=== PATIENT | female | born 1950 | race Caucasian/White ===

== ENCOUNTER → 2019-08-30 10:42 | Outpatient (CLI) | payer MEDICARE, OTHER, SELFPAY ==
--- NOTE | 2019-08-30 | DI.MG.S_ITS ---
BILATERAL DIGITAL SCREENING MAMMOGRAM 3D/2D WITH CAD: 08/30/2019 CLINICAL: Routine screening. Comparison is made to exams dated: 05/17/2017 mammogram, 10/29/2015 mammogram, and 05/17/2018 mammogram - outside location. The tissue of both breasts is heterogeneously dense. This may lower the sensitivity of mammography. Current study was also evaluated with a Computer Aided Detection (CAD) system. No significant masses, calcifications, or other findings are seen in either breast. There has been no significant interval change. IMPRESSION: NEGATIVE There is no mammographic evidence of malignancy. A 1 year screening mammogram is recommended. This exam was interpreted at Station ID: [id number]. NOTE: For mammograms, a report in lay terms will be sent to the patient. Approximately 15% of breast malignancies will not be visualized mammographically. In the management of a palpable breast mass, a negative mammogram must not discourage biopsy of a clinically suspicious lesion. Electronically Signed By: Deniz jauregui/tobin:09/02/2019 08:58:23 letter sent: Normal Exam ACR BI-RADS Category 1: Negative 3341F
== END ==
PROVIDERS: PCP Internal Medicine; Referring Provider Internal Medicine; Visit Provider Internal Medicine
DX: Z12.31 Encounter for screening mammogram for malignant neoplasm of breast (principal)
CPT/HCPCS: 77063; 77067

== ENCOUNTER → 2020-10-09 10:52 | Outpatient (CLI) | payer MEDICARE, OTHER, SELFPAY ==
--- NOTE | 2020-10-09 | DI.MG.S_ITS ---
BILATERAL DIGITAL SCREENING MAMMOGRAM 3D/2D WITH CAD: 10/09/2020 CLINICAL: Routine screening. Comparison is made to exams dated: 08/30/2019 mammogram - [facility], 05/17/2018 mammogram, 05/17/2017 mammogram, and 10/29/2015 mammogram - outside location. The tissue of both breasts is heterogeneously dense. This may lower the sensitivity of mammography. Current study was also evaluated with a Computer Aided Detection (CAD) system. No significant masses, calcifications, or other findings are seen in either breast. There has been no significant interval change. IMPRESSION: NEGATIVE There is no mammographic evidence of malignancy. A 1 year screening mammogram is recommended. This exam was interpreted at Station ID: [id number]. NOTE: For mammograms, a report in lay terms will be sent to the patient. Approximately 15% of breast malignancies will not be visualized mammographically. In the management of a palpable breast mass, a negative mammogram must not discourage biopsy of a clinically suspicious lesion. Electronically Signed By: Deniz jauregui/tobin:10/09/2020 15:32:40 letter sent: Normal Exam ACR BI-RADS Category 1: Negative 3341F
== END ==
PROVIDERS: PCP Internal Medicine; Referring Provider Internal Medicine; Visit Provider Internal Medicine
DX: Z12.31 Encounter for screening mammogram for malignant neoplasm of breast (principal)
CPT/HCPCS: 77063; 77067

== ENCOUNTER 2023-07-04 09:41 | Day surgery (SDC) | payer MEDICARE, OTHER, SELFPAY ==
[2023-07-04 10:30] VITALS: BP 151/72; PULSE 65; RESP 16; TEMP 36.4; O2SAT 99
[2023-07-04] MEDS: LACTATED RINGERS 1,000 ML 100 ML IV (10:33)
--- NOTE | 2023-07-04 10:51 | PM.HP.1 ---
History of Present Illness History of Present Illness Date Patient Seen: 07/04/23 Time Patient Seen: 10:51 Chief complaint: SDC Narrative: 73-year-old woman here for screening colonoscopy. Last colonoscopy 10 years ago normal. No family history of intestinal malignancy. No abdominal concerns today. Meds Home Medications and Allergies Home Medications Medication Instructions Recorded Confirmed Type aspirin 81 mg tablet,delayed 81 mg PO DAILY 07/04/23 07/04/23 History release atorvastatin 40 mg tablet 40 mg PO DAILY 07/04/23 07/04/23 History dulaglutide 0.75 mg/0.5 mL 0.75 SUBCUT WEEKLY 07/04/23 History subcutaneous pen injector (Trulicity) lisinopril 5 mg tablet 5 mg PO DAILY 07/04/23 07/04/23 History metformin 500 mg tablet,extended 500 mg PO BID 07/04/23 07/04/23 History release 24 hr Exam Narrative Exam Narrative: General adult woman alert oriented no acute distress Chest nonlabored respiration Extremities warm well perfused Assessment & Plan Assessment & Plan narrative: The patient requires colorectal screening and colonoscopy is recommended. Technical details were discussed. Risks, benefits, alternatives explained. Risks including but not limited to myocardial infarction, aspiration, bleeding, pain, missed lesion, incomplete examination, need for further radiographic studies, intestinal injury, and need for major abdominal surgery were discussed. All questions were answered to their satisfaction, and they are in agreement with this plan.
[2023-07-04 11:32] VITALS: BP 120/51; PULSE 64; RESP 13; TEMP 36.7; O2SAT 97
[2023-07-04 11:38] VITALS: BP 139/67; PULSE 58; RESP 14; O2SAT 99
--- NOTE | 2023-07-04 11:38 | P.OP.COLON_ITS ---
Operative Date/Time/Diagnoses Date of procedure: 07/04/23 Time of procedure: 11:38 Pre-op diagnosis: Colorectal screening Procedure & Clinicians Study performed: Screening colonoscopy Same procedure as scheduled: Yes Indications: Colorectal screening Surgeon: Regino Montaño Procedure Notes Procedure in detail: The history and physical was performed/updated and the patient is ASA class is 2. The procedure was discussed in detail with the patient. Potential risks co mplications including infection, bleeding, missed diagnosis, perforation, need for surgery, and were explained. Their questions were answered and informed consent was obtained. Patient was brought to the procedure room and placed standard monitoring equipment. The patient's vital signs were monitored continuously throughout the entire procedure. Prior to starting time-out was performed. The patient was placed in the left lateral recumbent position. Procedural sedation was administered by anesthesia. Examination began with a thorough inspection of the perianal area there was no evidence of fissures, fistulae, external hemorrhoids or cutaneous malignancy. The colonoscopy scope was then placed into the anal canal and was advanced to the cecum, which was identified by the ileocecal valve, the appendiceal orifice and the confluence of the taenia. The scope was then slowly withdrawn examining colon thoroughly in all directions, irrigating it of any residual stool. The scope was retroflexed within the rectum The patient tolerated the procedure well. They will be discharged once criteria are met. The prep was of fair quality. The withdrawl time was 7 minutes. FINDINGS * No masses polyps or inflammation. Specimen(s): none sent Impression: Normal colonoscopy Post-procedure Plan for aftercare: No further colonoscopy necessary unless symptomatic Disposition: same day surgery
[2023-07-04 11:42] VITALS: BP 146/65; PULSE 60; RESP 14; TEMP 36.3; O2SAT 99
[2023-07-04 11:46] VITALS: BP 153/68; PULSE 60; RESP 13; O2SAT 99
[2023-07-04 11:49] VITALS: BP 146/79; PULSE 60; RESP 16; TEMP 36.1; O2SAT 99
== END 2023-07-04 11:56 | disposition home or self-care (01) ==
PROVIDERS: Referring Provider Surgery; Visit Provider Surgery
PROC: 0DJD8ZZ Inspection of Lower Intestinal Tract, Via Natural or Artificial Opening Endoscopic (ICD-10-PCS; CPT 45378; principal; 2023-07-04 10:45)
DX: Z12.11 Encounter for screening for malignant neoplasm of colon (principal)
CPT/HCPCS: G0121; J2704

== ENCOUNTER → 2023-12-13 09:09 | Outpatient (CLI) | payer MEDICARE, OTHER, SELFPAY ==
--- NOTE | 2023-12-13 09:10 | DI.ECHO.S_ITS ---
[facility] : : [address] : : [place] : : [id number] : : Phone: [phone] Echocardiogram Report + + :Name: MARA MIRANDA Study Date: 12/13/2023 Height: 59 in : :[facility] ReadingLocation: Weight: 133 lb : : Gender: Female BSA: 1.6 m2 : :: 1950 Age: 73 yrs BP: 137/68 mmHg: :Reason For Study: HEART MURMUR : :Ordering Physician: AKI MCDANIELS Performed By: Muna Mistry : :Referring: AKI MCDANIELS : + + Interpretation Summary 1. The left ventricular contractility is normal. Estimate ejection fraction is greater than 55% with no segmental wall motion abnormalities. No LVH. Grade 1 diastolic dysfunction. 2. The right ventricular contractility is normal. 3. Mild left atrial enlargement. All other cardiac chambers are of normal size. 4. No significant valvular abnormalities. 5. No obvious intracardiac shunts. 6. No obvious intracardiac masses nor thrombi. 7. No hemodynamically significant pericardial effusion. 8. Low right-sided filling pressures. Conclusion: Normal biventricular systolic function with no significant valvular abnormalities. Procedure: A two-dimensional transthoracic echocardiogram with color flow and Doppler was performed. The study quality was technically adequate. There is no prior echocardiogram noted for this patient. The patient was in sinus rhythm with heart rates between 58-76 bpm during the exam. Left Ventricle: The left ventricle is normal in size and wall thickness. The ejection fraction is estimated to be 55-60%. Right Ventricle: The right ventricle is normal in size and function. Atria: The left atrium is mildly dilated. Right atrial size is normal. There is no Doppler evidence for an interatrial shunt. Mitral Valve: The mitral valve leaflets appear mildly thickened, but open well. There is no mitral regurgitation noted. Aortic Valve: The aortic valve is trileaflet. The aortic valve opens well. There is no aortic valve stenosis. There is trace aortic regurgitation. Tricuspid Valve: The tricuspid valve is normal in structure and function. There is trace tricuspid regurgitation. Pulmonic Valve: The pulmonic valve is not well seen, but is grossly normal. There is no pulmonic valvular regurgitation. Great Vessels: The aortic root is normal size. The dimensions of the ascending aorta are normal. The IVC is of normal diameter and collapses greater than 50% with a sniff. This suggests a low right atrial pressure of 3 mm Hg. Pericardium/ Pleura There is no pericardial effusion. There is no pleural effusion. MMode/2D Measurements & Calculations LVIDd: 3.9 cm LVOT diam: 1.8 cm LVIDs: 2.4 cm Ao root diam: 2.3 cm FS: 37.0 % asc Aorta Diam: 3.6 cm EPSS: 0.32 cm Ao Arch Diam (Prox Trans): 3.2 cm IVSd: 0.88 cm LVPWd: 0.66 cm LV marion. diameter/BSA (cm/m^2): 2.5 LV sys. diameter/BSA (cm/m^2): 1.6 LA A2 area: 21.1 cm2 RA long axis: 5.0 cm LA A4 area: 14.3 cm2 RA area: 14.4 cm2 LA length (vol): 4.4 cm RA vol: 35.2 ml LA vol: 58.0 ml RA : 22.7 ml/m2 LA vol index: 37.4 ml/m2 IVC diam: 1.8 cm RVD1 (basal): 3.2 cm TAPSE: 2.3 cm Doppler Measurements & Calculations Ao V2 max: 168.0 cm/sec LVOT Max Leonid: 123.7 cm/sec Ao V2 mean: 124.9 cm/sec LV V1 max P.1 mmHg Ao max P.3 mmHg LV V1 VTI: 26.7 cm Ao mean P.8 mmHg YURI(I,D): 1.7 cm2 Ao V2 VTI: 39.7 cm YURI(V,D): 1.9 cm2 sev ratio: 0.67 YURI indexed to BSA (cm^2/m^2): 1.1 MV E max leonid: 79.5 cm/sec PA V2 max: 78.6 cm/sec MV A max leonid: 93.4 cm/sec PA V2 mean: 53.0 cm/sec MV E/A: 0.85 PA mean P.2 mmHg Med Peak E' Leonid: 7.2 cm/sec PA pr(Accel): 0.22 mmHg E/E' med: 11.0 Lat Peak E' Leonid: 7.9 cm/sec E/E' lat: 10.1 E/e' average: 10.5 MV dec time: 0.33 sec SV(LVOT): 67.7 ml Reading Physician:
== END ==
PROVIDERS: Referring Provider Internal Medicine; Visit Provider Internal Medicine
DX: R01.1 Cardiac murmur, unspecified (principal)
CPT/HCPCS: 93306

== ENCOUNTER 2024-04-11 11:41 | Emergency (ER) | payer MEDICARE, OTHER, SELFPAY ==
[2024-04-11 11:44] VITALS: BP 131/63; PULSE 71; RESP 16; TEMP 37.1; O2SAT 99; BMI 24.8
--- NOTE | 2024-04-11 12:19 | ED_ITS ---
HPI - Recheck/Abnormal Lab/Rx <Sharee De Leon PA-C - Last Filed: 04/11/24 21:21> General Chief Complaint: Recheck/Abnormal Lab/Rx Stated Complaint: UTI Time Seen by Provider: 04/11/24 12:19 Source: patient Mode of arrival: Ambulatory History of Present Illness HPI narrative: Ms. Mckeon a 74-year-old female with a past medical history of hypertension, hyperlipidemia, diabetes who presents to the emergency department for dysuria x 3 days. Patient states Monday evening she developed burning with urination and sensation of bladder spasms. States that she has a history of recurrent UTIs and was just recently on Macrobid Monday/Monday/Monday which resolved her symptoms until they returned Monday. Patient states she last saw urology 4 months ago and had ?normal testing? at that time. Reports that she was on a 30 day course of antibiotics some months ago. She denies fevers, chills, nausea, vomiting, abdominal pain, hematuria, vaginal pain, vaginal discharge, vaginal erythema or irritation. No bowel changes. States that the dysuria is very typical for her normal UTI. Denies flank pain. She was sent with a note from her [place] PCP Dr. Farhan Mccray, stating that her urine culture grew E coli and was only resistant to ampicillin, urine culture results confirm this. Related Data Home Medications Medication Instructions Recorded Confirmed aspirin 81 mg tablet,delayed 81 mg PO DAILY 07/04/23 07/04/23 release atorvastatin 40 mg tablet 40 mg PO DAILY 07/04/23 07/04/23 dulaglutide 0.75 mg/0.5 mL 0.75 SUBCUT WEEKLY 07/04/23 subcutaneous pen injector (Trulicity) lisinopril 5 mg tablet 5 mg PO DAILY 07/04/23 07/04/23 metformin 500 mg tablet,extended 500 mg PO BID 07/04/23 07/04/23 release 24 hr Previous Rx's Medication Instructions Recorded phenazopyridine 200 mg tablet 200 mg PO TID PRN pain 6 doses #6 04/11/24 (Pyridium) tabs sulfamethoxazole 800 1 tab PO BID 7 days #14 tabs 04/11/24 mg-trimethoprim 160 mg tablet Allergies Allergy/AdvReac Type Severity Reaction Status Date / Time No Known Drug Allergies Allergy Verified 04/11/24 11:47 Review of Systems <Sharee De Leon PA-C - Last Filed: 04/11/24 21:21> Review of Systems ROS Unobtainable: All systems reviewed & are unremarkable except as noted in HPI and below Patient History <Sharee De Leon PA-C - Last Filed: 04/11/24 21:21> Social History Smoking Status: Never smoker alcohol intake: never Smoking Status: Never smoker Exam <Sharee De Leon PA-C - Last Filed: 04/11/24 21:21> Narrative Exam Narrative: GENERAL: 74 year old patient appears stated age. Well-developed patient, in no acute distress. HEAD: Atraumatic. Normocephalic. NECK: Trachea midline. Cervical ROM intact. CARDIOVASCULAR: Regular rate and rhythm. RESPIRATORY: ?Nonlabored respirations. ?Speaking in clear, full sentences. ?Clear to auscultation. GASTROINTESTINAL: Abdomen soft, non-tender, nondistended. EXTREMITIES: No edema or joint tenderness. BACK: NO CVA tenderness. NEURO: AOx3. ?Clear speech. ?Moves all 4 extremities appropriately. SKIN: No rash or erythema of visible areas Initial Vital Signs Initial Vital Signs: Vital Signs Temperature 98.7 F 04/11/24 11:44 Pulse Rate 71 04/11/24 11:44 Respiratory Rate 16 04/11/24 11:44 Blood Pressure 131/63 04/11/24 11:44 Pulse Oximetry 99 04/11/24 11:44 Oxygen Delivery Method Room Air 04/11/24 11:44 <Jennifer Eli DO - Last Filed: 04/16/24 00:20> Initial Vital Signs Initial Vital Signs: Vital Signs Temperature 98.7 F 04/11/24 11:44 Pulse Rate 71 04/11/24 11:44 Respiratory Rate 16 04/11/24 11:44 Blood Pressure 131/63 04/11/24 11:44 Pulse Oximetry 99 04/11/24 11:44 Oxygen Delivery Method Room Air 04/11/24 11:44 Course <Sharee De Leon PA-C - Last Filed: 04/11/24 21:21> Orders Ordered: Discontinued Medications Phenazopyridine HCl (Phenazopyridine 100 Mg Tablet) 200 mg PO NOW ONE Stop: 04/11/24 12:38 Last Admin: 04/11/24 12:45 Dose: 200 mg Documented By: JDiana Vital Signs Vital signs: Vital Signs - 8 hr 04/11/24 13:51 Pulse Rate 69 Respiratory Rate 17 Blood Pressure 132/60 Pulse Oximetry 99 Oxygen Delivery Method Room Air <Jennifer Eli DO - Last Filed: 04/16/24 00:20> Orders Ordered: Discontinued Medications Phenazopyridine HCl (Phenazopyridine 100 Mg Tablet) 200 mg PO NOW ONE Stop: 04/11/24 12:38 Last Admin: 04/11/24 12:45 Dose: 200 mg Documented By: JDiana Vital Signs Vital signs: Vital Signs - 8 hr 04/11/24 13:51 Pulse Rate 69 Respiratory Rate 17 Blood Pressure 132/60 Pulse Oximetry 99 Oxygen Delivery Method Room Air MDM - Recheck/Abnormal Lab/Rx <Sharee De Leon PA-C - Last Filed: 04/11/24 21:21> Medical Records Attestation: I reviewed the patient's medical records. Medical records narrative: Additionally reviewed outside urine cultures. Lab Data Labs: Lab Results 04/11/24 Range/Units 13:05 Urine RBC None seen (0-5/HPF) Urine WBC 30-100/hpf H (0-5/HPF) Ur Squamous Epith Cells None seen (0-5/HPF) Urine Bacteria Many (>30) H (None) Ur Culture Indicated? Specimen cultured Vol Urine Centrifuged 10ml (spun) [facility] Narrative Medical decision making narrative: 74-year-old female with a past medical history of hypertension, hyperlipidemia, diabetes who presents to the emergency department for dysuria x 3 days. Differential diagnosis includes but is not limited to recurrent urinary tract infection, urethritis, vulvovaginal candidiasis, etc. On exam patient is in no acute distress, nontoxic appearing, vital signs within normal limits. Abdomen soft and nontender, no CVA tenderness. Patient declines exam reports no vaginal redness or discharge. Reviewed her outside reports revealing recent urine culture revealing growth of E coli, susceptible to all antibiotics except for resistance to ampicillin. Patient was on a 3 day course of Macrobid which resolved her symptoms however they returned shortly after. Repeat urinalysis today reveals urine WBCs and bacteria concerning for UTI. We will treat patient with trimethoprim/sulfamethoxazole b.i.d. x7 days and advised she follow up with Urology. Provided with 2 day course of AZO as well. I did discuss the risks of elevated potassium while taking Bactrim and lisinopril, patient states that her blood pressures are often in the low 100s at home and she is only on 5 mg of lisinopril and she has stopped it in the past before with her PCP to take antibiotics therefore I did recommend she discontinue lisinopril for the next week while taking this antibiotic given her normal/low home blood pressure readings. Discussed strict ED return precautions with the patient, follow up with PCP and Urology, patient verbalized understanding of all information is agreeable with the plan, she is stable for discharge home, medications sent to pharmacy of choice. <Jennifer Eli, DO - Last Filed: 04/16/24 00:20> Lab Data Labs: Lab Results 04/11/24 Range/Units 13:05 Urine RBC None seen (0-5/HPF) Urine WBC 30-100/hpf H (0-5/HPF) Ur Squamous Epith Cells None seen (0-5/HPF) Urine Bacteria Many (>30) H (None) Ur Culture Indicated? Specimen cultured Vol Urine Centrifuged 10ml (spun) Discharge Plan Departure Patient Disposition: Home Clinical Impression: Acute UTI (urinary tract infection) Instructions: DI for Urinary Tract Infection (UTI) Activity Restrictions/Additional Instructions: Dear Ms. Mckeon, Today you were evaluated for burning with urination and your urinalysis revealed a urinary tract infection. We are putting you on a different antibiotic than you were recently on for a longer amount of time. Please complete the full 7 day antibiotic course. Please be aware that this antibiotic can cause increased potassium while taking lisinopril, so it is very important follow up with your primary care doctor or return to the emergency department if you develop any new or worsening symptoms. I have also prescribed you 2 days of azo to help with dysuria. Please increase hydration, return to the ER with any new or worsening symptoms, flank pain, fevers, vomiting or any other concerns. Please call to schedule an appointment with urology for follow up for recurrent urinary tract infections. You may call to schedule an appointment with your current urologist or with [facility] here in [place]. Please follow up with your primary care doctor within the next 2-3 days for ER follow-up. (If you do not have a PCP you can call [phone]. ?to schedule an appointment with an [facility] Primary Care Provider) IF YOU DEVELOP ANY NEW OR WORSENING SYMPTOMS, RETURN TO THE ER! Please read the attached instructions, they highlight more specific treatments and interventions for you at home. Thank you for letting me participate in your care, Sharee De Leon PA-C Prescriptions: New sulfamethoxazole-trimethoprim 800-160 mg tablet 1 tab PO BID 7 Days Qty: 14 0RF phenazopyridine [Pyridium] 200 mg tablet 200 mg PO TID PRN (Reason: pain) Qty: 6 0RF No Action aspirin 81 mg tablet,delayed release (DR/EC) 81 mg PO DAILY atorvastatin 40 mg tablet 40 mg PO DAILY lisinopril 5 mg tablet 5 mg PO DAILY metformin 500 mg tablet extended release 24 hr 500 mg PO BID Trulicity 0.75 mg/0.5 mL pen injector 0.75 SUBCUT WEEKLY Referrals: ProviderChetna [Primary Care Provider] - Stand Alone Forms: Patient Portal/API/Survey ED Sign-out <Jennifer Eli DO - Last Filed: 04/16/24 00:20> Cosign ED Attending Cosmorrisature Attestation: I was available for consultation.
[2024-04-11] MEDS: PHENAZOPYRIDINE 100 MG TABLET 200 MG PO (12:45)
[2024-04-11 13:26] LABS: Bacteria Urine Many (>30); Culture Indicated Urine Specimen Cultured; RBC Urine None Seen (0-5/HPF); Squamous Epithelial Cell Urine None Seen (0-5/HPF); Urine Volume 10mL (spun); WBC Urine 30-100/HPF (0-5/HPF)
[2024-04-11 13:51] VITALS: BP 132/60; PULSE 69; RESP 17; O2SAT 99
== END 2024-04-11 13:52 | disposition home or self-care (01) ==
PROVIDERS: Emergency Provider Physician Assistant
DX: N39.0 Urinary tract infection, site not specified (principal); I10 Essential (primary) hypertension; E78.5 Hyperlipidemia, unspecified; E11.9 Type 2 diabetes mellitus without complications; Z79.84 Long term (current) use of oral hypoglycemic drugs
CPT/HCPCS: 81015; 87077; 87086; 87186; 99283

== ENCOUNTER → 2024-05-15 12:12 | Outpatient (CLI) | payer MEDICARE, OTHER, SELFPAY ==
--- NOTE | 2024-05-15 12:15 | DI.US.S_ITS ---
MM diagnostic mammo unilat RT, US breast RT limited: 05/15/2024 BI-RADS: 3 CLINICAL: 74-year old female for right diagnostic breast mammography and US. Tyrer-Cuzick lifetime risk of 2.5%. No personal or first-degree family history of breast cancer. PRIOR EXAMS 02/407/, 08/30/2019. MAMMOGRAPHY TECHNIQUE: 2D and 3D (tomosynthesis) digital mammographic views obtained, with additional images as needed for full coverage. Current study was also evaluated with a Computer Aided Detection (CAD) system. ULTRASOUND TECHNIQUE Real-time jerry scale and color doppler imaging of the area of clinical interest was performed with image documentation. TARGETED Right Breast Ultrasound: Real-time ultrasound exam was performed focused to area of clinical and/or imaging concern. DENSITY Right: C. The breasts are heterogeneously dense, which may obscure small masses. MAMMOGRAPHY FINDINGS Right (finding-1): Upper Outer at 10:00, Middle depth: There is a focal asymmetry present. ULTRASOUND FINDINGS Right (finding-1): Upper Outer at 10:00, 7 cm from nipple, measuring 0.5 x 0.8 x 0.2 cm: Correlating with findings on mammogram there is an oval, circumscribed mass. Right: Upper Outer at 10:00, 6 cm from nipple, measuring 0.3 cm: Macro-calcification. There is an oval mass with associated calcification in mass. IMPRESSION: Right (Mass): Upper Outer at 10:00, 7 cm from nipple, measuring 0.5 x 0.8 x 0.2 cm * Probably Benign. Right (Mass): Upper Outer at 10:00, 6 cm from nipple, measuring 0.3 cm * Probably Benign. RECOMMENDATIONS Right: Upper Outer at 10:00, 7 cm from nipple * Six month followup with diagnostic mammography. * Six month followup with diagnostic ultrasound. Right: Upper Outer at 10:00, 6 cm from nipple * Six month followup with diagnostic ultrasound. OVERALL ASSESSMENT CATEGORY BI-RADS-3: Probably Benign. ELECTRONICALLY SIGNED: Luke Bartlett M.D. on 05/16/2024 at 10:32:26 AM Interpreting Station ID: [id number]
== END ==
DX: R92.8 Other abnormal and inconclusive findings on diagnostic imaging of breast (principal); N63.11 Unspecified lump in the right breast, upper outer quadrant; R92.333 Mammographic heterogeneous density, bilateral breasts
CPT/HCPCS: 76642; 77065; G0279

== ENCOUNTER → 2024-09-16 10:05 | Outpatient (CLI) | payer MEDICARE, OTHER, SELFPAY ==
--- NOTE | 2024-09-16 10:07 | DI.RAD.S_ITS ---
PROCEDURE: FL BARIUM SWALLOW INDICATIONS: Dysophagia COMPARISON: None. FINDINGS: Function: Small sliding hiatal hernia is seen. 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 No significant elicited gastroesophageal reflux during the exam. There is delayed transit of a calibrated barium tablet through the esophagus into the stomach. Morphology: Air-contrast images demonstrate normal mucosal morphology. Single contrast views show no esophageal strictures, extrinsic mass effects, or diverticula. Limited images of the stomach demonstrate normal appearance. IMPRESSION: 1. Small hiatal hernia with transverse esophageal folds noted in mid to distal esophageal lumen given appearance of feline esophagus which may be related to gastroesophageal reflux. No significant gastroesophageal reflux is noted during this study. 2. No gross intraluminal filling defect, large ulceration or high-grade stenosis although there is delayed transition of swallowed barium tablet at the level of gastroesophageal junction. Consider endoscopic correlation. Dictated by: Bin Mcdaniels M.D. on 09/16/2024 at 12:02 Approved by: Bin Mcdaniels M.D. on 09/16/2024 at 12:09
== END ==
PROVIDERS: Referring Provider Surgery; Visit Provider Surgery
DX: K44.9 Diaphragmatic hernia without obstruction or gangrene (principal); R13.10 Dysphagia, unspecified
CPT/HCPCS: 74220

== ENCOUNTER 2024-10-04 10:48 | Day surgery (SDC) | payer MEDICARE, OTHER, SELFPAY ==
[2024-10-02 10:11] VITALS: BMI 24.8
--- NOTE | 2024-10-04 | PATH_ITS ---
[facility] Accession Number: [id number] No. of containers..02 Tissue . 01 Material submitted: . PART A: stomach - STOMACH, ANTRUM PART B: back - BACK LIPOMA . 01 Clinical history: . A) H.PYLORI . 01 Diagnosis: Part A: STOMACH, ANTRUM: Gastric mucosa with mild chronic inflammation. No Helicobacter organisms identified. No intestinal metaplasia, dysplasia, or malignancy identified. . Part B: BACK LIPOMA: BENIGN ADIPOSE TISSUE CONSISTENT WITH LIPOMA. [facility] 10/16/20241334 Local . 01 Electronically signed: . Carlitos Murrell MD, Pathologist NPI- [id number] . 01 Gross description: . Part A: ANTRUM : Received in formalin are 2 fragment(s) of malloy, soft tissue measuring 0.1 x 0.1 x 0.1 cm to 0.5 x 0.2 x 0.1 cm submitted entirely in 1 cassette(s) . Part B: BACK LIPOMA: Received in formalin are 2 fragments of malloy soft tissue measuring 5.0 x 4.0 x 2.0 cm in aggregate. Tissue is inked. Specimen is sectioned and submitted in floor representative sections in 2 cassettes. /DORI 10/16/20241334 Local . 01 Microscopic: . Part A: STOMACH,ANTRUM: An immunohistochemical stain was performed to evaluate for Helicobacter organisms and is negative. The control stains appropriately. * This test was developed and the performance characteristics were validated by [facility]. It has not been cleared or approved by the Food and Drug Administration. . 01 Pathologist provided ICD-10: D17.9, K29.50 . 01 CPT . 730997, 230690, V28461 Specimen Comment: A courtesy copy of this report has been sent to [facility] Pathology Performed at: [address] [address] [address] [address], [place], [place] [id number] MD Carlitos Murrell MD Phone: [phone]
[2024-10-04 11:15] VITALS: BP 177/68; PULSE 53; RESP 16; TEMP 36.4; O2SAT 100
[2024-10-04 11:16] VITALS: BMI 22.4
[2024-10-04] MEDS: LACTATED RINGERS 1,000 ML 42 ML IV (11:33)
--- NOTE | 2024-10-04 11:55 | PM.PREOP ---
Pre-operative Note Interval Note History & Physical reviewed/Exam performed by Physician: Yes Changes to H&P: No ASA Class (for procedural sedation): I
--- NOTE | 2024-10-04 12:58 | SUR.OPER ---
Lateral on a stretcher, head on pillow, gel axillary roll in place, bottom leg bent with gel pad under knee to foot, upper leg straight and supported with pillows. Upper arm supported by pillows and secured over bottom arm to padded arm board. Safety belt at hip, tape over blanket lower legs.
--- NOTE | 2024-10-04 13:18 | P.OP_ITS ---
Operative Date/Time/Diagnoses Date of procedure: 10/04/24 Time of procedure: 13:18 Pre-op diagnosis: Dysphagia, back lipoma Post-op diagnosis: other (Antral gastritis, small esophagus, no esophagitis, duodenitis, 8cm back lipoma) Procedure & Clinicians Procedure: EGD with biopsy, excision 8cm back lipoma Same procedure(s) as scheduled: Yes Indications: 74yo F with dysphagia, painful back mass Surgeon: Zack Orona Surgical Resident: Hugo Pulliam Anesthesia Type: General Operative Notes Findings: Antral gastritis, 2cm hiatal hernia, duodenitis, small esophagus, 8cm back lipoma Closure Type: primary Specimen(s): other (Antral biopsies for hpylori, back lipoma) Applied: none Estimated Blood Loss (mL): 5 Blood products transfused: none Procedure in detail: After informed consent and satisfactory general endotracheal anesthesia, time- out was performed with all team members in agreement. The patient was positioned supine with HOB elevated 30 degrees. The endoscope was passed through the bite block over the tongue and down the esophagus under direct vision. The patient was noted to have a narrow esophagus. Z-line at 38cm. There was a small hiatal hernia noted, but no esophagitis. She had significant antral gastritis that had the clinical appearance of active Helicobacter pylori. She had mild duodenitis as well. There was no ulceration or erosion in the stomach, esophagus or duodenum. We took biopsies of the antral mucosa to rule out Helicobacter pylori. Her pylorus opening was very small but easily passed with the scope. The scope was withdrawn. Retroflex view revealed a small, less than 2 cm hiatal hernia. There was no mass or polyp or ulcer or erosion in the gastric body or fundus. The air was suctioned upon removal of the scope. The esophagus did not have evidence for Vásquez's esophagitis, ulcer, stricture or mass. No indication for dilation at this time. Our attention was then turned toward the mass on her back. She was positioned in the right lateral decubitus position with pressure points well padded and an axillary roll. The back was prepped and draped in the usual sterile manner. The mass was marked in the preoperative holding area. The skin and subcutaneous tissues were infiltrated with 10 cc of 0.5% Marcaine with epinephrine. The skin incision was made with a #15 blade. This was carried through the skin and subcutaneous tissues. The lipoma was noted to be well encapsulated. It was removed in its entirety and measured 8 cm. This was passed off the field for permanent section. Hemostasis was achieved with cautery. The capsule and subcutaneous plane was closed using 3-0 Vicryl interrupted. The deep space was incorporated to reduce the chance for seroma. The skin incision was closed using 4-0 Monocryl in a subcuticular manner. Dermabond glue was applied as a final dressing. The estimated blood loss was minimal. The instrument, sponge and needle counts were all correct x2. The patient tolerated the procedure well and was extubated in the operating room after reversal of general endotracheal anesthesia and transported to the recovery area in stable condition. Complications: none Post-operative Condition: stable Disposition: PACU Plan for aftercare: Home today
[2024-10-04 13:25] VITALS: BP 175/68; PULSE 87; RESP 16; TEMP 36.1; O2SAT 98
[2024-10-04 13:30] VITALS: BP 157/67; PULSE 82; RESP 14; O2SAT 98
[2024-10-04 13:35] VITALS: BP 136/57; PULSE 79; RESP 16; O2SAT 100
[2024-10-04 13:40] VITALS: BP 142/69; PULSE 78; RESP 17; O2SAT 100
[2024-10-04 13:52] VITALS: BP 163/70; PULSE 73; RESP 18; O2SAT 100
== END 2024-10-04 14:16 | disposition home or self-care (01) ==
PROVIDERS: Referring Provider Surgery; Visit Provider Surgery
PROC: 0DJ08ZZ Inspection of Upper Intestinal Tract, Via Natural or Artificial Opening Endoscopic (ICD-10-PCS; CPT 43239; principal; 2024-10-04 12:15)
PROC: (CPT 43239; 2024-10-04 12:15)
DX: R13.10 Dysphagia, unspecified (principal); D17.1 Benign lipomatous neoplasm of skin and subcutaneous tissue of trunk; K44.9 Diaphragmatic hernia without obstruction or gangrene; K29.50 Unspecified chronic gastritis without bleeding
CPT/HCPCS: 43239; 21931; 82962; J1100; J1885; J2405; J2704; J3010

== ENCOUNTER → 2024-12-17 09:00 | Outpatient (CLI) | payer MEDICARE, OTHER, SELFPAY ==
--- NOTE | 2024-12-17 09:01 | DI.US.S_ITS ---
MM diagnostic mammo BI, US breast RT limited: 12/17/2024 BI-RADS: 0 CLINICAL: 74-year old female for bilateral diagnostic mammogram and right diagnostic breast ultrasound that is a follow-up to diagnostic mammogram on 05/15/2024. Tyrer-Cuzick lifetime risk of 2.5%. No personal or first-degree family history of breast cancer. The patient reports a palpable abnormality (6 months) in the left breast. PRIOR EXAMS: 05/15/2024, 02/14/2024, 11/11/2022, 11/04/2021, 10/09/2020, 08/30/2019. MAMMOGRAPHY TECHNIQUE: 2D and 3D (tomosynthesis) digital mammographic views obtained, with additional images as needed for full coverage. Current study was also evaluated with a Computer Aided Detection (CAD) system. ULTRASOUND TECHNIQUE TARGETED Right Breast Ultrasound: Real-time ultrasound exam was performed focused to area of clinical and/or imaging concern. Real-time jerry scale and color doppler imaging of the area of clinical interest was performed with image documentation. DENSITY C. The breasts are heterogeneously dense, which may obscure small masses. MAMMOGRAPHY FINDINGS Right (finding-1): Upper Outer at 10:00, Middle depth: Correlating with prior imaging concern, there is a stable focal asymmetry present. Left: Inner Central, Posterior depth: A marker overlies the breast at the site of palpable abnormality; there is no underlying mammographic correlate. No suspicious mass, asymmetry, microcalcification, or other abnormality seen. Additional imaging evaluation needed. ULTRASOUND FINDINGS Right (finding-1): Upper Outer at 10:00, 7 cm from nipple, measuring 0.6 x 0.3 x 0.6 cm: Correlating with findings on mammogram and prior imaging concern there is an oval, hypoechoic mass that is parallel. The mass is unchanged in size and appearance. Doppler shows no vascularity. Associated features include calcification outside of the mass. IMPRESSION: Right (Mass): Upper Outer at 10:00, 7 cm from nipple, measuring 0.6 x 0.3 x 0.6 cm * Probably Benign. Left: Inner Central, Posterior depth * Incomplete - Needs additional imaging evaluation. RECOMMENDATIONS Right: Upper Outer at 10:00, 7 cm from nipple * Six month followup with diagnostic mammography and diagnostic ultrasound. Left: Inner Central, Posterior depth * Further evaluation with diagnostic ultrasound. COMMENTS: Findings and recommendations were conveyed to the patient during today's evaluation. OVERALL ASSESSMENT CATEGORY BI-RADS-0: Incomplete - Need Additional Imaging Evaluation. ELECTRONICALLY SIGNED: Sandi Paniagua M.D. on 12/17/2024 at 10:19:15 AM PT Interpreting Station ID: [id number]
== END ==
DX: R92.8 Other abnormal and inconclusive findings on diagnostic imaging of breast (principal); N63.11 Unspecified lump in the right breast, upper outer quadrant; R92.333 Mammographic heterogeneous density, bilateral breasts
CPT/HCPCS: 76642; 77066; G0279

== ENCOUNTER → 2025-02-10 09:30 | Outpatient (CLI) | payer MEDICARE, OTHER, SELFPAY ==
--- NOTE | 2025-02-10 09:38 | DI.US.S_ITS ---
US breast LT limited: 02/10/2025. BI-RADS: 1 CLINICAL: 75-year old female for left diagnostic breast ultrasound that is a follow-up to diagnostic mammogram on 12/17/2024. Tyrer-Cuzick lifetime risk of 2.2%. No personal or first-degree family history of breast cancer. The patient reports a palpable abnormality (6 months) in the left breast. PRIOR EXAMS 12/17/2024, 05/15/2024, 02/14/2024, 11/11/2022, 11/04/2021, 10/09/2020, 08/30/2019. ULTRASOUND TECHNIQUE Real-time jerry scale imaging of the area of clinical interest was performed with image documentation. TARGETED Left Breast Ultrasound: Real-time ultrasound exam was performed focused to area of clinical and/or imaging concern. ULTRASOUND FINDINGS Left: Upper Inner at 9:30, 8 cm from nipple. Previous report: Inner Central: There is no sonographic abnormality to account for concern by the patient of a palpable lump. IMPRESSION: Left * No evidence of malignancy. RECOMMENDATIONS Right * The patient is due for short interval follow up of the right breast with mammogram and ultrasound in June 2025 (per the report from 12/17/2024). Left * Clinical follow-up is recommended, and further management of palpable abnormalities or other focal signs or symptoms should be based on the results of clinical evaluation. If palpable abnormality or other concerning symptom persists or progresses, further clinical evaluation should be considered. * Annual screening mammography (due December 2025). COMMENTS: Findings and recommendations were conveyed to the patient during today's evaluation. OVERALL ASSESSMENT CATEGORY BI-RADS-1: Negative. ELECTRONICALLY SIGNED: Sandi Paniagua M.D. on 02/10/2025 at 10:51:38 AM PT Interpreting Station ID: [id number]
== END ==
LOC: US 09:36
DX: R92.8 Other abnormal and inconclusive findings on diagnostic imaging of breast (principal)
CPT/HCPCS: 76642

== ENCOUNTER → 2025-02-10 09:40 | Outpatient (CLI) | payer MEDICARE, OTHER, SELFPAY ==
--- NOTE | 2025-02-10 10:47 | DI.US.S_ITS ---
PROCEDURE: US RENAL COMPLETE INDICATIONS: UTI TECHNIQUE: Real-time scanning was performed of the kidneys and bladder, with image documentation. COMPARISON: None. FINDINGS: Kidneys: Kidneys are normal in size. Right kidney measures 9.8 cm long; left kidney measures 11.7 cm long. Right renal cortical thickness is 1.6 cm; left renal cortical thickness is 1.8 cm. Renal cortical echotexture is normal. No hydronephrosis or nephrolithiasis. No suspicious solid mass lesions. Bladder: Pre-void bladder volume is 50 mL. Patient was unable to void. Pre- void images demonstrate no intraluminal masses or stones. On pre-void images, bilateral ureteral jets are noted with color Doppler interrogation. (Of note, ureteral jets may not be detectable in up to 25% of cases due to insufficient differences in specific gravity between ureteral and bladder urine). Miscellaneous: No free pelvic fluid. IMPRESSION: Unremarkable ultrasound examination of bilateral kidneys and partially distended urinary bladder. Dictated by: Bin Mcdaniels M.D. on 02/11/2025 at 9:55 Approved by: Bin Mcdaniels M.D. on 02/11/2025 at 9:58
== END ==
LOC: US 09:43
DX: R35.0 Frequency of micturition (principal)
CPT/HCPCS: 76642; 76770